=== PATIENT | male | born 1975 | race Caucasian/White ===

== ENCOUNTER 2019-06-22 18:53 | Emergency (ER) | payer SELFPAY ==
[2019-06-22 18:56] VITALS: BP 117/69; PULSE 69; RESP 18; TEMP 36.1; O2SAT 99; BMI 25.7
[2019-06-22 19:46] LABS: Absolute Neutrophil Count 2.9 X10^3/uL (2.0-7.7); Basophil# 0.16 X10^3/uL; Eosinophil# 0.84 X10^3/uL; Eosinophils% 5.4 % (0-5); Hematocrit 44.7 % (40-54); Hemoglobin 15.2 g/dL (13.0-16.5); Lymphocyte % 68.8 % (19-41); Mean Corpuscular Hgb 31.1 pg (27.0-32.0); Mean Corpuscular Volume 91.6 fL (80-94); Monocyte# 0.95 X10^3/uL; Monocyte% 6.1 % (0-10); NRBC Flagged by Analyzer 0 % (0-5); Neutrophil # 2.87 X10^3/uL (2.7-7.7); Neutrophil % 18.4 % (47-70); POSITIVE DIFFERENTIAL YES; POSITIVE MORPHOLOGY YES; Platelet Count 121 K/mm3 (150-450); RBC Distribution Width CV 13.3 % (11.6-14.6); RBC Distribution Width SD 44.9 fl (35.1-43.9); Red Blood Count 4.88 M/mm3 (4.6-6.2); White Blood Count 15.6 K/mm3 (4.4-11.0)
[2019-06-22] MEDS: Ondansetron 4 MG/2 ML Vial IV (19:47)
[2019-06-22] MEDS: Ketorolac 30 MG/ML Syringe 15 MG IV (19:47)
[2019-06-22] MEDS: 0.9% Normal Saline 1,000 ML 1000 ML IV (19:47)
[2019-06-22 19:53] LABS: Differential Indicated SCAN CRITERIA MET
[2019-06-22 20:01] LABS: AST(SGOT) 750 U/L (15-37); Alanine Aminotransfer ALT/SGPT 1333 U/L (16-61); Albumin, Serum 3.3 g/dL (3.2-5.0); Alkaline Phosphatase 241 U/L (45-117); Anion Gap 6 (5-15); BUN 8 mg/dL (7-18); BUN/Creat Ratio 9.9 RATIO (10-20); Bilirubin, Direct 1.65 mg/dL (0.00-0.30); Chloride 105 mmol/L (98-107); Creatinine, Serum 0.81 mg/dL (0.70-1.30); EST Glomerular Filtration Rate 109 mL/min (>60); Est Glom Filt Rate - Afr Amer 131 mL/min (>60); Estimated Creatinine Clearance 125.08 ml/min; Glucose 93 mg/dL (74-106); Lipase 78 U/L (73-393); Protein, Total 7.3 g/dL (6.4-8.2); Sodium Level 136 mmol/L (136-145)
--- NOTE | 2019-06-22 20:14 | US_ITS ---
STUDY: ABDOMINAL ULTRASOUND - RIGHT UPPER QUADRANT REASON FOR VISIT: Male, 44 years old MIDLINE AND LT SIDE PAIN, WITH NAUSEA- X 3 DAYS TECHNIQUE: Ultrasound evaluation of the right upper quadrant was performed with real-time and static crawford-scale imaging. TECHNICAL QUALITY: Adequate. COMPARISON: None. FINDINGS: Pancreas: Visualized portions of pancreas are unremarkable. Liver: Measures 21.8 cm. Liver shows increased echogenicity. No masses identified. Gallbladder: Moderate wall thickening. Negative sonographic Dougherty''s sign. Common bile duct: Measures 4 mm. No intraductal stones identified. Right kidney: Measures 12.1 and cm in length. Normal contour. 2.7 cm cyst. No masses, stones, or hydronephrosis identified. Renal cortical thickness appears normal. Additional findings: None. US/Gallbladder IMPRESSION: Hepatomegaly and diffuse hepatic steatosis. Moderate gallbladder wall thickening and possible trace pericholecystic fluid. Acute cholecystitis should be excluded clinically. Electronically Signed: Andrei Ash, at 20:53 EDT Tel , Service support ,
[2019-06-22 20:22] LABS: Atypical Lymphocyte 2+ %; Platelet Estimate SLT DEC (ADEQ); Red Cell Morphology N CHROM NORMAL (NORM C&C)
[2019-06-22 20:23] LABS: Anisocytosis RARE; Macrocytosis RARE
--- NOTE | 2019-06-22 22:35 | ED.DCSUM_ITS ---
- ER Visit Summary Date of Service: 06/22/19 Chief Complaint: Abdominal pain History of Present Illness: The patient is a 44 M with no primary care physician. He reports that he has epigastric abdominal pain began 2 days ago. To continuous waxing and waning pain. Describes it as dull and aching. Set at 10 at worst out of 10 currently. Is worsened by food and lifting. It is relieved by weak. Reports has been nauseated and vomited once. No blood in his emesis. No diarrhea. His last bowel was 2 days ago. Typically goes daily. He denies any dysuria frequency. Is never had anything like this before. Patient reports that typically he drinks 2 tall boys a day. However, he has not had anything to drink for 4 to 5 days. He does not feel like he is in alcohol withdrawal. He is never been in alcohol withdrawal. He denies other drug use. However he does state that he used IV drugs as recently as a year ago. He has never been tested for hepatitis C. Physical Examination: Vitals: Stable. Afebrile. General: Well-nourished and well-developed. Head: Normocephalic atraumatic. Neck: Supple, no lymphadenopathy. No JVD. Nontender. Cardiovascular: Regular rate and rhythm. No murmurs. Respiratory: No respiratory distress. Clear to auscultation bilaterally. Abdominal: Soft, moderate epigastric tenderness palpation, no right upper quadrant tenderness palpation, no Dougherty sign, nondistended, normal bowel sounds. No guarding, rebound, or peritoneal signs. Back: Nontender. Extremities: Nontender, no edema. Skin: Normal color, no rash. Neurologic: Alert and oriented ?3. Cranial nerves II through XII are intact. Normal strength and sensation. Psych: Normal affect. Test Results: CBC shows a white count of 15.6 with plates of 121, stable neutrophils 18, lymphocytes of 69. Chem-7 shows a calcium of 8.0. LFTs show a total bili of 2.0 with a direct bili 1.65, alk phos of 241, ALT of 1333, AST of 750, lipase of 78. He has no old labs for comparison. Clinical Impression(s) from Imaging Studies Gallbladder Ultrasound 06/22/19 20:14 IMPRESSION: Hepatomegaly and diffuse hepatic steatosis. Moderate gallbladder wall thickening and possible trace pericholecystic fluid. Acute cholecystitis should be excluded clinically. Electronically Signed: Andrei Ash, at 20:53 EDT Tel , Service support , Emergency Department Course and Treatment: Was returned I went back and talked with patient about possibility of hepatitis. He has not been taking Tylenol. He does admit to a history of IV drug abuse that is never been worked up. States that he has not used IV drugs for a year. The pattern of his liver enzymes is more consistent with hepatitis. The ALT and AST are elevated much more than the alk phos. Also elevated way that I do not think that this is from drinking alcohol. Patient feels well and would like to go home. On repeat exam his pain is in the epigastric region. He has no right upper quadrant tenderness to palpation despite the reading of the ultrasound I do not think that he has cholecystitis. Treatment Plan: Patient had an acute hepatitis panel sent. He will be discharged with Abby and instructed to follow-up with the [facility] in 2 days for another exam. Return to the emergency department for any worsening symptoms. Disposition: To home in improved and stable condition. Impression: 1. Hepatitis, uncertain cause. 2. History of IV drug abuse. 3. History of alcoholism. This note was generated with [employer] dictation software. It may contain incorrect words, spelling, and punctuation that were not noted in review of the chart prior to signing ED Disposition - Plan for ED Patient: Disposition: Home or Assisted Living Instructions: HEPATITIS, Cause Unknown (test pending) Prescriptions: Ondansetron [Zofran Odt] 4 mg PO Q8H PRN PRN #10 tab PRN Reason: Nausea Prescription Printed Referrals: Keira [facility] [NON-STAFF] - 3-5 Days
[2019-06-22 23:03] VITALS: BP 119/67; PULSE 61; RESP 16; O2SAT 99
[2019-06-23 09:41] LABS: Pathologist Review Reviewed
[2019-06-24 05:06] LABS: HEPATITIS B SURFACE AG Negative (Negative); Hepatitis A IgM Antibody Negative (Negative); Hepatitis B Core AB IgM Negative (Negative)
[2019-06-24 15:16] LABS: Hep C Antibodies 9.4 s/co ratio (0.0-0.9)
== END 2019-06-22 23:03 | disposition home or self-care (01) ==
LOC: ED 19:31
PROVIDERS: Emergency Provider Emergency Medicine
DX: K75.9 Inflammatory liver disease, unspecified (principal); F10.20 Alcohol dependence, uncomplicated; F19.10 Other psychoactive substance abuse, uncomplicated; K76.0 Fatty (change of) liver, not elsewhere classified; K59.00 Constipation, unspecified; R51 Headache; F17.200 Nicotine dependence, unspecified, uncomplicated
CPT/HCPCS: 76705; 80048; 80074; 80076; 83690; 85025; 96361; 96374; 96375; 99283; J7030; J2405

== ENCOUNTER 2020-07-19 09:00 | Emergency (ER) | payer SELFPAY ==
[2020-07-19 09:01] VITALS: BP 154/107; PULSE 66; RESP 19; TEMP 36.4; O2SAT 100; BMI 25.0
--- NOTE | 2020-07-19 09:04 | ED.VIS.GEN ---
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 Patient states this was an accident he was not attempting suicide. He is a daily heroin user. He does not feel he is in acute withdrawal right now and states he feels fine. His significant other uses heroin quite a bit as well. Patient denies any recent illness or injury. He has no pain right now. Past Medical History - Allergies and Home Meds Allergies/Adverse Reactions: Allergies No Known Allergies Allergy (Verified 07/19/20 09:01) Primary Care Physician: [facility] [STAFF PHYSICIAN] - As Needed Past Medical History: None Smoking Status: Current every day smoker Drugs: Heroin, - - Methamphetamine Review of Systems General: Denies: Chills, Fever, Sweats Eyes: Denies: Visual changes - bilaterally, Diplopia ENT: Denies: Rhinorrhea, Sore throat Cardiovascular: Denies: Chest pain, Palpitations Respiratory: Denies: Dyspnea, Cough, Dyspnea on exertion Gastrointestinal: Denies: Abdominal pain, Nausea, Vomiting, Diarrhea, Melena, Hematochezia Genitourinary: Denies: Dysuria, Hematuria, Frequency Musculoskeletal: Denies: Back pain, Extremity Pain Skin: Denies: Rash, Wounds Neurological: Denies: Headache, Weakness, Numbness Physical Exam Inital Vital Signs reviewed: Yes General: Well nourished, Well developed, No Acute Distress Head: Normocephalic, Atraumatic Eyes: Perrl, EOMI ENT: Moist mucous membranes, No rhinorrhea Neck: Supple, Nontender Cardiovascular: Regular rate, Regular rhythm, No murmurs. Negative for: Tachycardia Respiratory: No distress, CTA bilaterally, Chest nontender Abdomen: Soft, Nontender, Nondistended, Normal bowel sounds Back: Nontender, Normal Inspection Extremities: Nontender, No edema Skin: Normal color, No rash, - - Track leon right antecubital fossa without signs of infection, bleeding, discharge, abscess, palpable cord. Neurological: Alert, Oriented x3, Cranial nerves II-XII grossly intact, Normal Strength, Normal Sensation Psychological: Normal affect, Normal Mood Diagnostic/Tx/Re-eval - Medical Decision Making Patient states he is not interested in detox. He states unfortunately, his significant other uses heroin quite a bit and he has no plans to sever that relationship at this time. He appreciates the offer for detox however. He was monitored for 1 to 2 hours, he did not become lethargic or lose consciousness or develop any other symptoms and was stable for discharge. ED Disposition - Plan for ED Patient: Disposition: Home or Assisted Living Diagnosis: Accidental heroin overdose Instructions: ED Overdose, Opiate Referrals: [facility] [STAFF PHYSICIAN] - As Needed
[2020-07-19 09:44] VITALS: BP 153/95; PULSE 64; RESP 16; O2SAT 97
[2020-07-19 11:15] VITALS: BP 136/80; PULSE 75; RESP 16
== END 2020-07-19 11:16 | disposition home or self-care (01) ==
LOC: ED 09:50
PROVIDERS: Emergency Provider Emergency Medicine
DX: T40.1X1A Poisoning by heroin, accidental (unintentional), initial encounter (principal); Y92.9 Unspecified place or not applicable; F17.200 Nicotine dependence, unspecified, uncomplicated
CPT/HCPCS: 99285

== ENCOUNTER 2022-04-03 21:44 | Emergency (ER) | payer SELFPAY ==
[2022-04-03 21:45] VITALS: BP 155/104; PULSE 67; RESP 16; TEMP 35.6; O2SAT 100; BMI 26.7
--- NOTE | 2022-04-03 22:28 | RAD_ITS ---
STUDY: X-RAY CHEST REASON FOR EXAM: Male, 47 years old. chest pain TECHNIQUE: PA and lateral views of the chest. COMPARISON: None. FINDINGS: The lungs are clear and expanded. There is no demonstrated pleural abnormality. Normal size heart. Normal mediastinum and luis. Normal visualized pulmonary arteries. Normal visualized aortic arch and descending thoracic aorta. Normal visualized thoracic spine. Normal visualized ribs, clavicles, and shoulders. There is no demonstrated abnormality of the visualized soft tissue structures of the upper abdomen. RAD/Chest PA and Lateral IMPRESSION: Normal x-ray examination of the chest. Electronically Signed: Gerson Patino MD at 22:42 EST ,
--- NOTE | 2022-04-03 22:31 | EX.ED.DYSGE1 ---
HPI History of Present Illness Chief Complaint: Chest Pain Narrative Narrative: Patient is a 47-year-old male with history of smoking and reportedly nontreated hypertension. He states that he was having a tooth ache and he was told by a friend that if he took gabapentin this could help his symptoms. He states he took a gabapentin and roughly 30 minutes to an hour later developed fatigue and weakness and then began with midsternal chest discomfort. He states he started to become anxious which he felt worsens his symptoms. He states that his significant other gave him a full strength aspirin and his symptoms began to slowly improve. He states that its been roughly an hour and 1/2 to 2 hours since the onset of symptoms and that they are essentially resolved but the event worried him enough to come in for evaluation. He states that there was no nausea vomiting diaphoresis or shortness of breath associated with [facility] Medical History Hypertension Home Medications NK 07/19/20 [History Last Taken Unknown] Allergy/AdvReac Type Severity Reaction Status Date / Time No Known Allergies Allergy Verified 07/19/20 09:01 Surgical History (Updated 04/03/22 @ 21:56 by Becca Diamond) History of appendectomy History of facial surgery Social History Smoking Status: Current every day smoker tobacco type: cigarettes ROS ROS ED Constitutional Constitutional ED: Denies chills or fever(s) ENT ENT ED: Denies sore throat Cardiovascular Cardiovascular: Reports chest pain; Denies palpitations or racing heartbeat Respiratory/Chest Respiratory/Chest: Denies cough or dyspnea Gastrointestinal Gastrointestinal: Denies abdominal pain, diarrhea, nausea or vomiting Genitourinary Genitourinary ED: Denies dysuria Musculoskeletal Musculoskeletal: Denies myalgias Integumentary Denies rash Neurologic Neurologic: Denies headache(s) Psychiatric Psychiatric: Reports anxiety Hematologic/Lymphatic Hematologic/Lymphatic: Denies easy bleeding or easy bruising EXAM Physical Exam Const Vital Signs: 04/03/22 21:45 04/03/22 21:45 04/03/22 21:53 Temperature 96.0 F L 96.0 F L Temperature Source Temporal Temporal Pulse Rate 67 67 Respiratory Rate 16 16 Respiratory Effort Normal Non-Labored Blood Pressure 155/104 H 155/104 H Blood Pressure Mean 121 121 Pulse Ox 100 100 Oxygen Delivery Method Room Air Room Air 04/03/22 22:45 Temperature Temperature Source Pulse Rate 61 Respiratory Rate 14 Respiratory Effort Blood Pressure 140/97 H Blood Pressure Mean 111 Pulse Ox 96 Oxygen Delivery Method Room Air Positive well nourished and well developed General Appearance ED: well developed Eyes PERRL and EOMs intact bilaterally Neck supple Chest Wall palpation of chest normal Resp normal respiratory effort and clear to auscultation bilaterally Cardio regular rate and regular rhythm Rate: other Other Details: Radial pulses are plus 2 out of 4 bilaterally they are equal Carotid pulses are equal and symmetric as well GI normal to inspection, nondistended, normoactive bowel sounds, non-tender and non-distended GI Narrative: No voluntary guarding or rigidity no pulsatile mass or fluid wave Auscultation: normoactive bowel sounds Palpation: soft Extremity normal to inspection Extremity Narrative: No asymmetric edema no pitting edema negative Homans' sign bilaterally Neuro oriented x3 and CN's II-XII intact bilaterally Sensorium / Orientation: alert Psych mental status grossly normal Skin no rashes or lesions noted MDM MDM MDM Narrative Medical decision making narrative: Patient presented to the ER hypertensive but does have a history of this that is untreated. He reports he has been having spontaneous improvement of symptoms. He states everything began after taking a gabapentin which he is not normally prescribed and his history of developing weakness/fatigue following this is consistent with an adverse effect on chart review of the medication. As he does have history of hypertension and smoking and reported chest discomfort a cardiac work-up was obtained. His chest x-ray revealed no acute findings and his initial and delta troponin are normal. On reevaluation he is resting comfortably he does report resolution of his symptoms and therefore at this time as he is having spontaneous improvement of symptoms and negative work-up there is no need to keep him in the hospital and he is otherwise safe for discharge Lab Data Attestation: I reviewed the patient's lab results. Labs: Laboratory Results - last 24 hr 04/03/22 04/03/22 04/04/22 22:24 22:24 00:11 WBC 6.9 RBC 4.77 Hgb 14.2 Hct 42.7 MCV 89.5 MCH 29.8 MCHC 33.3 RDW Std Deviation 38.6 RDW Coeff of Alanis 11.9 Plt Count 262 MPV 9.1 Immature Gran % (Auto) 0.300 Neut % (Auto) 48.6 Lymph % (Auto) 39.1 [place] % (Auto) 9.4 Eos % (Auto) 2.2 Baso % (Auto) 0.4 Absolute Neuts (auto) 3.4 Absolute Lymphs (auto) 2.70 Nucleated RBC % 0 Sodium 141 Potassium 3.7 Chloride 108 H Carbon Dioxide 29.0 Anion Gap 4 L BUN 13 Creatinine 0.88 Estim Creat Clear Calc 114.76 Est GFR (MDRD) Af Amer 119 Est GFR (MDRD) Non-Af 98 BUN/Creatinine Ratio 14.8 Glucose 108 H Calcium 8.7 Magnesium 2.4 Troponin I High Sens 4 4 Radiography Diagnostic Testing: Clinical Impression(s) from Imaging Studies Chest X-Ray 04/03/22 22:28 IMPRESSION: Normal x-ray examination of the chest. Electronically Signed: Gerson Patino MD at 22:42 EST Reading Location ID and State: [id number] [facility] Tel , Service support , Chest x-ray as interpreted by the emergency medicine physician reveals no acute infiltrate pneumothorax or pleural effusion Discharge Plan Triage Chief Complaint: Chest Pain ED Provider: Jama Gaitan Dx/Rx/DC Orders Clinical Impression: Nonspecific chest pain, Adverse drug effect, Hypertension Instructions: ED Chest Pain, Uncertain Cause, ED Hypertension, To Be Confirmed Prescriptions: No Action NK Primary Care Provider: Care Physician,No Primary Referrals: Kenney Seo MD [Med Staff - Active Staff] - Care Physician,No Primary [Primary Care Provider] - Activity Restrictions/Additional Instructions: Please return to the ER should you have any further concerns Disposition Disposition: Home, Self Care
[2022-04-03 22:37] LABS: Absolute Neutrophil Count 3.4 X10^3/uL (2.0-7.7); Basophil# 0.03 X10^3/uL; Basophil% 0.4 % (0-1); Eosinophil# 0.15 X10^3/uL; Eosinophils% 2.2 % (0-5); Hematocrit 42.7 % (40-54); Hemoglobin 14.2 g/dL (13.0-16.5); Lymphocyte % 39.1 % (19-41); Mean Corp Hgb Conc 33.3 g/dL (32-36); Mean Corpuscular Hgb 29.8 pg (27.0-32.0); Mean Corpuscular Volume 89.5 fL (80-94); Mean Platelet Vol. 9.1 fl (6.2-12.0); Monocyte# 0.65 X10^3/uL; Monocyte% 9.4 % (0-10); NRBC Flagged by Analyzer 0 % (0-5); Neutrophil # 3.35 X10^3/uL (2.7-7.7); Neutrophil % 48.6 % (47-70); Platelet Count 262 K/mm3 (150-450); RBC Distribution Width CV 11.9 % (11.6-14.6); RBC Distribution Width SD 38.6 fl (35.1-43.9); Red Blood Count 4.77 M/mm3 (4.6-6.2); White Blood Count 6.9 K/mm3 (4.4-11.0)
[2022-04-03 22:45] VITALS: BP 140/97; PULSE 61; RESP 14; O2SAT 96
[2022-04-03 23:00] VITALS: BP 145/95; PULSE 64; RESP 17
[2022-04-03 23:02] LABS: Anion Gap 4 (5-15); BUN 13 mg/dL (7-18); BUN/Creat Ratio 14.8 RATIO (10-20); Calcium,Total 8.7 mg/dL (8.5-10.1); Chloride 108 mmol/L (98-107); Creatinine, Serum 0.88 mg/dL (0.70-1.30); EST Glomerular Filtration Rate 98 mL/min (>60); Est Glom Filt Rate - Afr Amer 119 mL/min (>60); Estimated Creatinine Clearance 114.76 ml/min; Glucose 108 mg/dL (74-106); Magnesium 2.4 mg/dL (1.6-2.6); Potassium 3.7 mmol/L (3.5-5.1); Sodium Level 141 mmol/L (136-145); Troponin-I HS 4 pg/mL (3.0-78.0)
[2022-04-04] VITALS: BP 137/88; PULSE 64; RESP 15
[2022-04-04 00:32] LABS: Troponin-I HS 4 pg/mL (3.0-78.0)
== END 2022-04-04 01:02 | disposition home or self-care (01) ==
PROVIDERS: Emergency Provider Emergency Medicine; Visit Provider Emergency Medicine
DX: R07.9 Chest pain, unspecified (principal); T50.905A Adverse effect of unspecified drugs, medicaments and biological substances, initial encounter; I10 Essential (primary) hypertension; F17.210 Nicotine dependence, cigarettes, uncomplicated
CPT/HCPCS: 71046; 80048; 83735; 84484; 85025; 93005; 99283; A4216

== ENCOUNTER 2025-02-01 23:54 | Emergency (ER) | payer SELFPAY ==
[2025-02-01 23:54] VITALS: BP 158/100; PULSE 111; RESP 20; TEMP 36.4; O2SAT 98; BMI 25.4
[2025-02-02 00:30] VITALS: BP 160/89; PULSE 90; RESP 20; TEMP 36.6; O2SAT 98
== END 2025-02-02 00:34 | disposition home or self-care (01) ==
LOC: ED 02-02 00:31
PROVIDERS: Emergency Provider Emergency Medicine; Visit Provider Emergency Medicine
DX: F19.19 Other psychoactive substance abuse with unspecified psychoactive substance-induced disorder (principal); F15.20 Other stimulant dependence, uncomplicated; F10.10 Alcohol abuse, uncomplicated; I10 Essential (primary) hypertension; F17.210 Nicotine dependence, cigarettes, uncomplicated; Z90.49 Acquired absence of other specified parts of digestive tract
CPT/HCPCS: 99282

== ENCOUNTER → 2025-03-20 | Outpatient (CLI) | payer MEDICAID, SELFPAY ==
[2025-03-20 16:53] LABS: Hematocrit 42.0 % (40-54); Hemoglobin 14.4 g/dL (13.0-16.5); Immature Granulocytes Count 0.020 X10^3/uL (0.0-0.0); Mean Corp Hgb Conc 34.3 g/dL (32-36); Mean Corpuscular Volume 87.1 fL (80-94); Mean Platelet Vol. 9.9 fl (6.2-12.0); NRBC Flagged by Analyzer 0 % (0-5); Platelet Count 285 K/mm3 (150-450); RBC Distribution Width CV 11.9 % (11.6-14.6); RBC Distribution Width SD 38.2 fl (35.1-43.9); Red Blood Count 4.82 M/mm3 (4.6-6.2); White Blood Count 6.6 K/mm3 (4.4-11.0)
[2025-03-20 17:45] LABS: AST(SGOT) 19 U/L (<=37); Alanine Aminotransfer ALT/SGPT 12 U/L (<=46); Albumin, Serum 4.5 g/dL (3.5-5.0); Alkaline Phosphatase 77 U/L (40-129); Anion Gap 14 (5-15); BUN 17 mg/dL (4-19); BUN/Creat Ratio 20.1 RATIO (10-20); Calcium,Total 9.4 mg/dL (7.6-11.0); Carbon Dioxide 20.4 mmol/L (21.0-32.0); Chloride 103 mmol/L (98-108); Globulin 2.8 g/dL (2.2-4.2); Glucose 114 mg/dL (70-99); HIV Nonreactive (Nonreactive); Potassium 4.2 mmol/L (3.3-5.1)
[2025-03-27 16:09] LABS: HEPATITIS B SURFACE AG Negative (Negative); Hep C Antibodies Reactive (Non Reactive)
== END | disposition home or self-care (01) ==
LOC: VSLAB 14:45
DX: F19.11 Other psychoactive substance abuse, in remission (principal); I10 Essential (primary) hypertension
CPT/HCPCS: 36415; 80053; 80074; 84443; 85025; 86703